=== PATIENT | female | born 1985 | race Caucasian/White ===

== ENCOUNTER 2017-08-19 01:00 | Emergency (ER) | payer OTHER ==
[2017-08-19] MEDS ORDERED: CLINDAMYCIN HCL CAP 150 MG CAP PO ONE (01:14)
[2017-08-19] MEDS ORDERED: ACETAMINOPHEN-CAFF-BUTALBITAL 1 EA TAB PO ONE (01:14)
[2017-08-19 01:15] VITALS: BP 138/59; TEMP 98.3; O2SAT 99
--- NOTE | 2017-08-19 01:18 | ED.PDOC ---
History of Present Illness - General Chief Complaint: Dental/Mouth Stated Complaint: toothache Time Seen by Provider: 08/19/17 01:11 Source: patient Exam Limitations: no limitations - History of Present Illness Initial Comments: the patient is a 32-year-old female presenting secondary to dental pain. She reports that a filling fell out a couple of weeks ago and she has had progressive increasing pain in her right maxillary second molar. She is having increased sinus pressure in the right maxillary sinus. No definite fevers. She has tried dlkn-gzz-pquvrdh Ambisol. She is 3-1/2 months . Timing/Duration: unsure Severity: moderate Improving Factors: nothing Worsening Factors: eating Associated Symptoms: denies symptoms Allergies/Adverse Reactions: Allergies Penicillins Adverse Reaction (Verified 08/19/17 01:14) Home Medications: Ambulatory Orders Lxpmgkczycngn-Wrtd-Plvhiuvwqt [Fioricet] 1 ea PO Q6HR PRN 08/19/17 Mkwnruaumrbfc-Pgfz-Sfeupjgqnl [Fioricet] 1 ea PO Q8H PRN #21 tab 08/19/17 Clindamycin HCl 300 mg PO Q8H #30 cap 08/19/17 Vit W/ Ferrous Fumara [] 1 tab PO DAILY 08/19/17 Promethazine Tab [Phenergan Tablet] 25 mg PO PRN 08/19/17 Sertraline HCl [Zoloft] 50 mg PO DAILY 08/19/17 Review of Systems - Review of Systems Constitutional: States: no symptoms reported EENTM: States: see HPI Respiratory: States: no symptoms reported Cardiology: States: no symptoms reported Gastrointestinal/Abdominal: States: no symptoms reported Genitourinary: States: no symptoms reported Musculoskeletal: States: no symptoms reported Skin: States: no symptoms reported Neurological: States: no symptoms reported Past Medical History (General) - Patient Medical History Hx Seizures: No Hx Stroke: No Hx Dementia: No Hx Asthma: No Hx of COPD: No Hx Cardiac Disorders: No Hx Congestive Heart Failure: No Hx Pacemaker: No Hx Hypertension: No Hx Thyroid Disease: No Hx Diabetes: No Hx Gastroesophageal Reflux: No Hx Renal Disease: No Hx Cancer: No Hx of HIV: No Hx Hepatitis C: No Hx MRSA: No Surgical History: no surgical history - Vaccination History Hx Tetanus, Diphtheria Vaccination: Yes Hx Influenza Vaccination: No Hx Pneumococcal Vaccination: No - Social History Hx Tobacco Use: Yes - occ past history Hx Chewing Tobacco Use: No Hx Alcohol Use: No Hx Substance Use: No Hx Substance Use Treatment: No Hx Depression: No Feels Threatened In Home Enviroment: No Feels Threatened In a Relationship: No Hx Physical Abuse: No Hx Emotional Abuse: No Hx Suspected Abuse: No - Female History Patient is a Female of Child Bearing Age (10 -59 yrs old): Yes Hx Last Menstrual Period: 06/21/15 Patient : Yes Expected Date of Delivery:: 01/26/15 - Triage Comment ED Triage Comment: 3 months Family Medical History - Family History Sister Age (years): 24 Living Status: Still Living Hx Family Diabetes: Yes - type I Hx Family Cancer: Yes - hx of skin cancer Hx Family;Other: Pt states uncles have diabetes and great- grandmother with diabetes Grandparents Age (years): 54 Hx Family Hypertension: Yes Hx Family Stroke: Yes Hx Family Cancer: Yes - skin cancer Hx Family;Other: Grandmother had a stroke Physical Exam - Physical Exam General Appearance: Alert, No apparent distress Eye Exam: bilateral normal Ears, Nose, Throat: hearing grossly normal, other - poor dentition. No obvious abscess present. Posterior oropharynx is clear. She does have right maxillary sinus tenderness to palpation. Neck: full range of motion, supple Respiratory: normal breath sounds, no respiratory distress, no accessory muscle use Cardiovascular/Chest: normal peripheral pulses, regular rate, rhythm, no edema Peripheral Pulses: radial,right: 2+, radial,left: 2+ Extremity: normal range of motion, no pedal edema, normal capillary refill Neurologic: research analyst II-XII nml as tested, alert, normal mood/affect, oriented x 3 Skin Exam: normal color Comments: Vital Signs - 24 hr 08/19/17 01:02 Temperature 98.3 F Pulse Rate [ 86 monitor] Respiratory 16 Rate Blood Pressure 138/59 [Right Arm] O2 Sat by Pulse 99 Oximetry Progress - Progress Progress: 08/19/17 01:17 the patient is a 32-year-old female presenting with dental pain from a cavity in her right maxillary molar giving her sinus pressure. The patient will be placed on Fioricet and clindamycin. She needs to follow-up with her dentist as soon as possible. ER warnings were given. Departure - Departure Clinical Impression: Pain due to dental caries Disposition: Discharge to Home or Self Care Condition: Fair Departure Forms: ED Discharge - Pt. Copy, Patient Portal Self Enrollment Instructions: DI for Tooth Decay Diet: regular diet Activity: increase activity as tolerated Referrals: Loc Garcia MD [Primary Care Provider] - 1-2 Weeks Prescriptions: Sadayozibnujn-Bxvx-Nltqytgpgt [Fioricet] 1 ea PO Q8H PRN #21 tab PRN Reason: Pain Clindamycin HCl 300 mg PO Q8H #30 cap Home Medications: Ambulatory Orders Hzmkjuscbknpb-Gndi-Abnjhxyoht [Fioricet] 1 ea PO Q6HR PRN 08/19/17 Vlydfpkjlolsx-Trak-Mxpklktwmj [Fioricet] 1 ea PO Q8H PRN #21 tab 08/19/17 Clindamycin HCl 300 mg PO Q8H #30 cap 08/19/17 Vit W/ Ferrous Fumara [] 1 tab PO DAILY 08/19/17 Promethazine Tab [Phenergan Tablet] 25 mg PO PRN 08/19/17 Sertraline HCl [Zoloft] 50 mg PO DAILY 08/19/17 Additional Instructions: the patient is a 32-year-old female presenting with dental pain from a cavity in her right maxillary molar giving her sinus pressure. The patient will be placed on Fioricet and clindamycin. She needs to follow-up with her dentist as soon as possible. ER warnings were given.
== END 2017-08-19 01:32 | disposition home or self-care (01) ==
LOC: ER 01:00
DX: O99.611 Diseases of the digestive system complicating pregnancy, first trimester (principal); K02.9 Dental caries, unspecified; Z3A.00 Weeks of gestation of pregnancy not specified; Z88.0 Allergy status to penicillin; Z87.891 Personal history of nicotine dependence

== ENCOUNTER 2019-07-24 13:48 | Emergency (ER) | payer SELFPAY ==
[2019-07-24 15:38] VITALS: O2SAT 100
[2019-07-24 15:41] VITALS: BP 146/99; TEMP 98.3
== END 2019-07-24 15:38 | disposition home or self-care (01) ==
LOC: ER 13:48
DX: S62.356A Nondisplaced fracture of shaft of fifth metacarpal bone, right hand, initial encounter for closed fracture (principal); F32.9 Major depressive disorder, single episode, unspecified; Z79.899 Other long term (current) drug therapy; Z88.0 Allergy status to penicillin; X50.9XXA Other and unspecified overexertion or strenuous movements or postures, initial encounter; Y93.89 Activity, other specified; Y92.9 Unspecified place or not applicable

== ENCOUNTER → 2019-08-04 | Outpatient (CLI) | payer OTHER | LOC: LAB.O 14:09 | DX: Z02.89 Encounter for other administrative examinations (principal) ==

== ENCOUNTER → 2019-08-15 | Outpatient (CLI) | payer OTHER ==
--- NOTE | 2019-08-16 20:12 | RAD ---
EXAM DESCRIPTION: Hand,Right 3 Views: CR/DR/XR CLINICAL HISTORY: 34 years Female RIGHT HAND PAIN COMPARISON: Radiographs of the right hand 07/24/2019. TECHNIQUE: 3 VIEWS AP. Lateral. Oblique. Right hand. FINDINGS: Oblique fracture of the mid right fifth metatarsal. Since the prior study, the fragments are more and there is minimal proximal migration of the distal component on the proximal component. Minimal callus formation noted around the ulnar distal aspect of the fracture. IMPRESSION: Oblique fracture of the mid right fifth metatarsal with fracture fragments more proximally. Callus formation around the distal aspect of the fracture. Electronically signed by: Bj Brizuela MD 08/16/2019 8:10 PM CDT
== END ==
LOC: RAD 09:20
PROVIDERS: ATTEND Orthopaedic Surgery
DX: S62.398A Other fracture of other metacarpal bone, initial encounter for closed fracture (principal)

== ENCOUNTER → 2019-09-15 | Outpatient (CLI) | payer OTHER ==
--- NOTE | 2019-09-15 09:00 | RAD ---
EXAM DESCRIPTION: Hand,Right 3 Views CLINICAL HISTORY: CLOSED FX OF METACARPAL BONE COMPARISON: Previous x-ray images of the right hand August 15, 2019 TECHNIQUE: AP, LATERAL, AND OBLIQUE FINDINGS: Three-view right hand shows oblique fracture of the fifth metacarpal. There is early bridging callus and periosteal new bone formation consistent with early changes of healing. There is underlying lytic no bone lesion. No change in alignment. IMPRESSION: Healing fracture of the right fifth metacarpal. Electronically signed by: Vishnu Lane MD 09/15/2019 8:59 AM CDT
== END ==
LOC: RAD 07:56
PROVIDERS: ATTEND Orthopaedic Surgery
DX: S62.306D Unspecified fracture of fifth metacarpal bone, right hand, subsequent encounter for fracture with routine healing (principal)